=== PATIENT | male | born 2000 | race Caucasian/White ===

== ENCOUNTER 2025-03-13 12:04 | Emergency (ER) | payer SELFPAY ==
[2025-03-13 12:11] VITALS: BP 125/76
--- NOTE | 2025-03-13 14:06 | ED.GENMED ---
History of Present Illness
General
Chief Complaint: Musculo-Skeletal Complaint
Source: patient
Time Seen by Provider: 03/13/25 13:45
History of Present Illness
History of Present Illness:
24-year-old male presenting to the emergency department for evaluation of left knee pain that he sustained last night while running stating he tripped over a curb and fell injuring the left knee. Radiology patient states the pain seems to be mainly
along the inferior portion of the knee/overlying the proximal patella. Increased pain with attempted range of motion and ambulating. No other injury sustained and no previous history of injury or surgery. Patient did not take anything for the
pain prior to arrival.
Past History
Past History
ED Past Medical History: None
ED Past Surgical History: None
Social History
Tobacco: Non-smoker
Alcohol: None
Drug: None
Personal: Single
Living: with family
Review of Systems
Review of Systems
All Other Systems: ROS reviewed and negative except as documented in HPI and ROS
Phy Exam
Physical Exam
Physical Exam:
GENERAL: Alert , in no apparent distress
EYE: conjunctiva clear
Head: Normocephalic atraumatic
NECK: Supple,
ENT: mmm.
LUNGS: no acute respiratory distress
NEUROLOGICAL: Alert and oriented
SKIN: Warm and dry, skin intact.
MUSCULOSKELETAL: Left knee: No obvious deformity, erythema or ecchymosis. Slight tenderness inferiorly to the patella and overlying the tibial plateau. Patient allows full range of motion but complains of increased pain at full flexion of the
knee. Extremity is otherwise warm well-perfused and neurovascularly intact.
PSYCH: Normal and appropriate interaction.
Scores
Heart Failure Risk
Heart Failure Risk Score: Not Applicable
Heart Score for Chest Pain Patients
STEMI patient?: Not applicable
Withdrawal Assessment of Alcohol
Withdrawal Assessment Completed?: Not applicable
Course
Orders/Labs/Results
Orders:
Orders
10/26/25 12:08
Knee, Left 4 or More Views [CR Knee - Left 4 Or More View*] Urgent
Comment:
Reason For Exam: pain, injury
03/13/25 14:07
Crutches-Treatment ONCE
Knee Immobilizer Left-Treatmen ONCE
Vital Signs
Initial and Last Documented VS:
Initial Vital Signs
Temp Pulse Resp BP Pulse Ox
99.0 F 99 16 125/76 98
03/13/25 12:11 03/13/25 12:11 03/13/25 12:11 03/13/25 12:11 03/13/25 12:11
Last Documented Vital Signs
Temp Pulse Resp BP Pulse Ox
99.0 F 99 16 125/76 98
03/13/25 12:11 03/13/25 12:11 03/13/25 12:11 03/13/25 12:11 03/13/25 14:07
MDM/Problems Addressed
Differential Diagnosis Includes:
Bone contusion
Sprain
Mensical injury
Ligamentous injury
Fracture
MDM/Problems Addressed:
24-year-old male presenting to the ER for evaluation of left knee pain sustained while running last night, tripped over a curb now with pain that worsens with ambulation. X-ray ordered from triage shows no acute fracture. Will place in a knee
immobilizer and crutches. RICE recommendations discussed. Information for orthopedics provided. Stable for discharge
*Radiology
Radiology exam reviewed: preliminary read by ED provider (No fracture)
*Pulse Oximetry
SaO2: 98
Oxygen Mode of Delivery: Room air
Patient hypoxic: no
*Critical Care Note
Total Time (30-74mins, 75-104mins- exclusive of procedures): Not Applicable
ED Attending Note
-
Portions of this chart may have been created with voice recognition software.� Occasional wrong word or��sound alike� substitutions may have occurred due to the inherent limitations of voice recognition software.
Discharge Plan
Departure
Patient Disposition: Home (Routine Discharge)
Date of Disposition: 03/13/25
Time of Disposition: 14:06
Patient with high blood pressure during this ER visit?: No
Discharge Problem:
Knee pain, left
Instructions: Knee Pain (DC)
Referrals:
Will Rodgers MD [Active, Orthopedics]
Interventions
Interventions:
*Risk Screen - Suicide Last Done: 03/13/25 13:47
*General Assessment Last Done: 03/13/25 13:47
*Neglect/Abuse Screening Last Done: 03/13/25 13:47
*ED- Fall Risk Assessment Last Done: 03/13/25 13:47
*ED COVID-19 Vaccine History Last Done: 03/13/25 13:47
*ED Influenza Vaccine History Last Done: 03/13/25 13:47
ED-Musculoskeletal Assessment Last Done: 03/13/25 13:47
Discharge Date and Time
Print Language: BARBADIAN
== END 2025-03-13 14:46 | disposition home or self-care (01) ==
LOC: EMR 12:04
PROVIDERS: EMERGENCY PHYSICIAN Emergency Medicine
DX: M25.562 Pain in left knee (principal); S89.92XA Unspecified injury of left lower leg, initial encounter; W10.1XXA Fall (on)(from) sidewalk curb, initial encounter; Y93.02 Activity, running
CPT/HCPCS: 99283; 29505; 73564